=== PATIENT | male | born 1960 | race Caucasian/White ===

== ENCOUNTER 2018-04-24 08:28 | Day surgery (SDC) | payer BC ==
[~2018-04-24 08:28] MED LIST: METOCLOPRAMIDE 10 MG INJ; ONDANSETRON 4 MG INJ; SUCCINYLCHOLINE CHLORIDE 100 MG/5 ML SYG IV
[2018-04-24] MEDS ORDERED: FENTAnyl 50 MCG/ML VIAL (10:30)
[2018-04-24] MEDS ORDERED: MIDAZOLAM 1 MG/ML 2 ML INJ (10:31)
[2018-04-24] MEDS ORDERED: DEXAMETHASONE 4 MG/ML 1 ML INJ (10:31)
[2018-04-24] MEDS ORDERED: ROCURONIUM 50 MG INJ (10:31)
[2018-04-24] MEDS ORDERED: PROPOFOL 20 ML (10:31)
[2018-04-24] MEDS ORDERED: LIDOCAINE 100 MG SYRINGE (10:31)
[2018-04-24] MEDS ORDERED: SUGAMMADEX SODIUM 200 MG/2 ML VIAL IV (10:32)
[2018-04-24] MEDS: OXYMETAZOLINE 0.05% 15 ML NAS SPRAY NASAL (12:24)
[2018-04-24] MEDS: LIDOCAINE 1%/EPI 30 ML INJ (12:25)
[2018-04-24] MEDS ORDERED: THROMBIN 5000 UNIT VIAL (13:15)
[2018-04-24] MEDS ORDERED: LABETALOL HCL 20MG INJ IV (14:00)
[2018-04-24] MEDS ORDERED: DIPHENHYDRAMINE 50 MG INJ IV (14:00)
[2018-04-24] MEDS ORDERED: HYDROmorphONE (0.2 MG/ML) 10ML SYG IV ×2 (14:00)
[2018-04-24] MEDS ORDERED: ONDANSETRON 4 MG INJ IV (14:00)
[2018-04-24] MEDS ORDERED: hydrALAzine 20 MG INJ IV (14:00)
[2018-04-24] MEDS ORDERED: FENTAnyl 50 MCG/ML VIAL IV ×2 (14:00)
[2018-04-24] MEDS ORDERED: MEPERIDINE 25 MG INJ IV (14:00)
== END 2018-04-24 15:30 | disposition home or self-care (01) ==
LOC: SDS 08:28
DX: J32.8 Other chronic sinusitis (principal); J33.9 Nasal polyp, unspecified
CPT/HCPCS: 31253; 88304